=== PATIENT | male | born 1975 | race African-American/Black ===

== ENCOUNTER 2022-09-12 08:54 | Emergency (ER) | payer OTHER, SELFPAY ==
[2022-09-12 09:01] VITALS: BP 122/66; PULSE 78; RESP 16; TEMP 36.4; O2SAT 100
--- NOTE | 2022-09-12 10:26 | ED.GENADULT ---
HPI - General Adult General Chief complaint: Skin/Abscess/Foreign Body Stated complaint: cyst on buttocks Time Seen by Provider: 09/12/22 09:21 History of Present Illness HPI narrative: This is a 47-year-old male who comes in the chief complaint of lesion to the buttocks. He first noticed this a little over a week ago. He states it is not painful right now. It is occasionally painful when he sits on it the wrong way and reports a 4 out of 10 pain at most. He denies redness or warmth. He has had an abscess on his neck before and was afraid this was an abscess so he came to the emergency department. Denies fevers, chills, rectal pain, abdominal pain. Denies any problems with bowel movements. Related Data Allergies Allergy/AdvReac Type Severity Reaction Status Date / Time No Known Allergies Allergy Verified 09/12/22 09:14 Review of Systems Review of Systems: CONSTITUTIONAL: Denies fever, chills, or sweats. EYES: Denies visual changes, redness, or discharge. ENT: Denies rhinorrhea, congestion, sore throat, or otalgia. CARDIOVASCULAR: Denies chest pain, palpitations, or edema. RESPIRATORY: Denies cough or dyspnea. GASTROINTESTINAL: Denies abdominal pain, nausea, vomiting, or diarrhea. GENITOURINARY: Denies dysuria or hematuria. SKIN: Denies rash or itching. MUSCULOSKELETAL: Denies back pain, joint pain, or myalgia. NEUROLOGIC: Denies headache, numbness, dizziness, or weakness. PSYCHIATRIC: Denies anxiety or depression. Exam Narrative: GENERAL: Well-appearing, well-nourished, and in no acute distress. HEAD: Normocephalic, atraumatic. EYES: PERRLA and EOMI. ABDOMEN: Soft, nontender, nondistended, normal active bowel sounds. EXTREMITIES: Normal range of motion. No edema. SKIN: There is an area of subcutaneous tissue about 6 cm in diameter to the left buttocks. I do not appreciate any warmth, purulence or induration. Lesion is firm and somewhat mobile. The area is grossly nontender. No lesion to the right buttocks. Warm, dry, no rash. NEURO: Alert and oriented x3. No focal deficits. PSYCH: Normal mood and affect. Course Vital Signs Vital signs: Vital Signs Temperature 97.6 F 09/12/22 09:01 Pulse Rate 78 09/12/22 09:01 Respiratory Rate 16 09/12/22 09:01 Blood Pressure 122/66 09/12/22 09:01 Pulse Oximetry 100 09/12/22 09:01 Oxygen Delivery Room Air 09/12/22 09:01 Temperature 97.6 F 09/12/22 09:01 Pulse Rate 78 09/12/22 09:01 Respiratory Rate 16 09/12/22 09:01 Blood Pressure 122/66 09/12/22 09:01 Pulse Oximetry 100 09/12/22 09:01 Oxygen Delivery Room Air 09/12/22 09:01 Medical Decision Making MDM Narrative Medical decision making narrative: This is a 47-year-old male presents with chief complaint of left buttocks cyst. Department because he was afraid of an abscess. He has minimal pain with this, only hurts in certain positions. On exam appreciate a firm somewhat mobile lesion that is about 6 cm in diameter. Do not feel this is any qualities of an abscess, and seems more like a cyst of some sort. Feel this would be better seen and treated in a general surgery clinic. He has no concerning findings on history or physical. No fevers, warmth, redness, drainage or any problems with bowel movements. The area is nontender. We will give him a referral to Dr. La (general surgery). Patient is understanding and agreeable with plan for discharge Discussed with plan with Dr. Chance and he is agreeing with plan for discharge. Vital Signs Vital Signs: Vital Signs Temperature 97.6 F 09/12/22 09:01 Pulse Rate 78 09/12/22 09:01 Respiratory Rate 16 09/12/22 09:01 Blood Pressure 122/66 09/12/22 09:01 Pulse Oximetry 100 09/12/22 09:01 Oxygen Delivery Room Air 09/12/22 09:01 Temperature 97.6 F 09/12/22 09:01 Pulse Rate 78 09/12/22 09:01 Respiratory Rate 16 09/12/22 09:01 Blood Pressure 122/66 09/12/22 09:01 Pulse Oximetry 100 09/12/22 09:0
== END 2022-09-12 10:40 | disposition home or self-care (01) ==
PROVIDERS: Emergency Provider Physician Assistant
DX: L72.9 Follicular cyst of the skin and subcutaneous tissue, unspecified (principal)
CPT/HCPCS: 99281

== ENCOUNTER 2025-05-28 16:29 | Emergency (ER) | payer OTHER, SELFPAY ==
--- NOTE | ~2025-05-28 | XR_ITS ---
EXAM/PROCEDURE: XR chest 2V HISTORY: cp COMPARISON: None available. TECHNIQUE: Two view(s) of the chest. FINDINGS: LUNGS: Clear of acute processes. There is hyperinflation. The findings are consistent with COPD in the appropriate clinical setting. PLEURAL SPACES: Clear. No evidence of fluid or pneumothorax. HEART/ MEDIASTINUM: Normal in appearance. SOFT TISSUES: No significant findings. BONES: No acute osseous abnormality. IMPRESSION: No acute findings. COPD type changes in the appropriate clinical setting. Reviewed, dictated and finalized at location A. RANCE UNDERWRITING ASSISTANT
--- NOTE | 2025-05-28 16:32 | ECG_ITS ---
Test Date: 2025-05-28 16:38:02 Measurements Intervals [place] Rate: 88 P: 66 TX: 119 QRS: 64 QRSD: 94 T: 66 QT: 332 QTc: 404 Interpretive Statements SINUS RHYTHM WITH SHORT TX INTERVAL NONSPECIFIC T-WAVE ABNORMALITY VOLTAGE CRITERIA FOR LVH [MEETS CRITERIA IN ONE OF: R(aVL), S(V1), R(V5), R(V5/V6)+S(V1)] ABNORMAL ECG No previous ECG available for comparison Electronically Signed On 05-28-2025 17:24:19 BRAKER PASSENGER TRAIN by Clinton Garay M.D.
[2025-05-28 16:34] VITALS: BP 121/76; PULSE 89; RESP 18; TEMP 36.4; O2SAT 100
[2025-05-28 16:52] LABS: Hematocrit 41.4 % (42.0-52.0); Hemoglobin 13.4 g/dL (14.0-18.0); Immature Granulocyte Percent A 0.3 % (0-0.5); Lymphocytes Absolute Auto 2.01 K/mm3 (0.9-3.2); Mean Corpuscular HGB Conc 32.4 g/dl (32-36); Mean Corpuscular Hemoglobin 27.6 pg (26-34); Mean Corpuscular Volume 85.2 fl (80-100); Nucleated Red Blood Cells Absolute Auto 0.000 K/mm3 (0.0-0.012); Nucleated Red Blood Cells Perc 0.0 % (0.0-0.2); Platelet Count Result 340 k/mm3 (150-375); Red Blood Count 4.86 M/mm3 (4.6-6.20); White Blood Count 7.0 K/mm3 (4.5-10.0)
[2025-05-28 17:02] LABS: Alanine Aminotransferase 22 U/L (6-50); Albumin Level 4.4 g/dL (3.5-5.1); Alkaline Phosphatase 54 U/L (38-126); Anion Gap 6 mmol/L (4-12); Aspartate Amino Transferase 27 U/L (17-59); Bilirubin,Total 0.6 mg/dL (0.2-1.3); Blood Urea Nitrogen 11 mg/dL (9-20); Calcium 9.6 mg/dL (8.4-10.2); Carbon Dioxide 31 mmol/L (22-30); Chloride 101 mmol/L (98-107); Estimated CRCL calculation 101 ml/min; Estimated Glomerular Filt Rate > 60; Glucose 92 mg/dL (65-110); Lipase 61 U/L (23-300); Potassium 4.2 mmol/L (3.4-5.0); Sodium 138 mmol/L (137-145); Total Protein 7.6 g/dL (6.3-8.2)
[2025-05-28 17:03] LABS: INR 1.1; Prothrombin Time 14.3 Seconds (11.1-14.7)
[2025-05-28 17:04] LABS: Partial Thromboplastin Time 27.4 Seconds (22.3-36.8)
[2025-05-28 17:14] LABS: Troponin I < 0.012 ng/mL (0.000-0.034)
[2025-05-28 19:29] VITALS: BP 120/88; PULSE 69; RESP 13; O2SAT 100
--- NOTE | 2025-05-28 19:43 | ECG_ITS ---
Test Date: 2025-05-28 19:39:09 Measurements Intervals [place] Rate: 68 P: 56 [place]: 124 QRS: 61 QRSD: 85 T: 66 QT: 371 QTc: 396 Interpretive Statements SINUS RHYTHM VOLTAGE CRITERIA FOR LEFT VENTRICULAR HYPERTROPHY Electronically Signed On 05-29-2025 07:21:22 SERVICES MANAGER by Said Randhawa D.O
[2025-05-28 20:04] LABS: Troponin I < 0.012 ng/mL (0.000-0.034)
[2025-05-28] MEDS: KETOROLAC 15 MG/ML VIAL (*BKC) IV PUSH (20:28)
[2025-05-28] MEDS: ACETAMINOPHEN 500 MG TABLET 1000 MG PO (20:28)
[2025-05-28 20:33] LABS: Influenza A QL RT-PCR Negative (Negative); Influenza B QL RT-PCR Negative (Negative); RSV RNA, RT-PCR Negative (Negative); SARS-CoV-2 RNA PCR Negative (Negative)
--- NOTE | 2025-05-28 21:37 | ED_ITS ---
HPI - General Adult General Chief complaint: Chest Pain Stated complaint: ear aches, chest pain, HTN Time Seen by Provider: 05/28/25 19:29 History of Present Illness HPI narrative: This is a 49-year-old male presenting with 4 days of flu-like symptoms. Symptoms include headache, sore throat, right ear pain, fatigue. He also has a dry cough and some chest pain when he coughs. He does not have any fevers chills nausea vomiting or diarrhea. He denies sick contacts at home. Related Data Allergies Allergy/AdvReac Type Severity Reaction Status Date / Time No Known Allergies Allergy Verified 05/28/25 16:32 Exam 2 Narrative: APPEARANCE: No apparent distress. Head: mild erythema of posterior pharynx without exudates, cerumen impaction bilaterally EYES: EOMI, NOSE: Atraumatic NECK: Trachea midline RESPIRATORY: No increased rate of breathing Clear to auscultation CARDIOVASCULAR: RRR, ABDOMINAL: Non-distended MUSCULOSKELETAl: No obvious deformities NEURO: Alert. Moving 4/4 extremities SKIN:: Warm, dry. Normal color PSYCHIATRIC: Normal affect Course Vital Signs Vital signs: Vital Signs Temperature 97.5 F L 05/28/25 16:34 Pulse Rate 89 05/28/25 16:34 Respiratory Rate 18 05/28/25 16:34 Blood Pressure 121/76 05/28/25 16:34 Pulse Oximetry 100 05/28/25 16:34 Temperature 97.5 F L 05/28/25 16:34 Pulse Rate 69 05/28/25 19:29 Respiratory Rate 13 05/28/25 19:29 Blood Pressure 120/88 05/28/25 19:29 Pulse Oximetry 100 05/28/25 19:29 Oxygen Delivery Room Air 05/28/25 19:29 Medical Decision Making [facility] Narrative Medical decision making narrative: -Course: 49-year-old male presenting with flu-like symptoms. Vital signs are stable. Physical exam was benign. Labs within normal limits. Chest x-ray without infiltrates or pneumonia. Viral swabs are negative. Patient then absconded from the ED before his strep throat returned. -DDX includes but is not limited to: Flu, COVID, strep, viral syndrome Vital Signs Vital Signs: Vital Signs Temperature 97.5 F L 05/28/25 16:34 Pulse Rate 89 05/28/25 16:34 Respiratory Rate 18 05/28/25 16:34 Blood Pressure 121/76 05/28/25 16:34 Pulse Oximetry 100 05/28/25 16:34 Temperature 97.5 F L 05/28/25 16:34 Pulse Rate 69 05/28/25 19:29 Respiratory Rate 13 05/28/25 19:29 Blood Pressure 120/88 05/28/25 19:29 Pulse Oximetry 100 05/28/25 19:29 Oxygen Delivery Room Air 05/28/25 19:29 Lab Data 05/28/25 16:43 05/28/25 16:43 Labs: Lab Results 05/28/25 05/28/25 05/28/25 Range/Units 16:43 19:36 19:46 WBC 7.0 (4.5-10.0) K/mm3 RBC 4.86 (4.6-6.20) M/mm3 Hgb 13.4 L (14.0-18.0) g/dL Hct 41.4 L (42.0-52.0) % MCV 85.2 (80-100) fl MCH 27.6 (26-34) pg MCHC 32.4 (32-36) g/dl RDW 15.6 H (11.5-14.5) % Plt Count 340 (150-375) k/mm3 MPV 8.7 (7.4-10.4) fl Immature Gran % (Auto) 0.3 (0-0.5) % Neut % (Auto) 59.6 (45.5-73.1) % Lymph % (Auto) 28.6 (18.3-44.2) % [place] % (Auto) 10.4 H (2.6-8.5) % Eos % (Auto) 0.7 (0-4.4) % Baso % (Auto) 0.4 (0.2-1.2) % Lymph # (Auto) 2.01 (0.9-3.2) K/mm3 [place] # (Auto) 0.7 H (0.1-0.6) K/mm3 Eos # (Auto) 0.1 (0-0.3) K/mm3 Baso # (Auto) 0.0 (0.0-0.1) K/mm3 Abs Immat Gran (auto) 0.02 (0.00-0.031) K/mm3 Absolute Neuts (auto) 4.2 (1.3-6.7) K/mm3 Absolute Nucleated RBC 0.000 (0.0-0.012) K/mm3 Nucleated RBC % 0.0 (0.0-0.2) % PT 14.3 (11.1-14.7) Seconds INR 1.1 APTT 27.4 (22.3-36.8) Seconds Sodium 138 (137-145) mmol/L Potassium 4.2 (3.4-5.0) mmol/L Chloride 101 (98-107) mmol/L Carbon Dioxide 31 H (22-30) mmol/L Anion Gap 6 (4-12) mmol/L BUN 11 (9-20) mg/dL Creatinine 0.82 (0.7-1.3) mg/dL Estim Creat Clear Calc 101 ml/min Estimated GFR > 60 (59 - ) Glucose 92 (65-110) mg/dL Calcium 9.6 (8.4-10.2) mg/dL Total Bilirubin 0.6 (0.2-1.3) mg/dL AST 27 (17-59) U/L ALT 22 (6-50) U/L Alkaline Phosphatase 54 (38-126) U/L Troponin I < 0.012 < 0.012 (0.000-0.034) ng/mL Total Protein 7.6 (6.3-8.2) g/dL Albumin 4.4 (3.5-5.1) g/dL Lipase 61 (23-300) U/L Influenza A (RT-PCR) Negative (Negative) Influenza B (RT-PCR) Negative (Negative) RSV (RT-PCR) Negative (Negative) SARS-CoV-2 RNA (RT-PCR) Negative (Negative) Group A Strep (PCR) 05/28/25 Range/Units 20:29 WBC (4.5-10.0) K/mm3 RBC (4.6-6.20) M/mm3 Hgb (14.0-18.0) g/dL Hct (42.0-52.0) % MCV (80-100) fl MCH (26-34) pg MCHC (32-36) g/dl RDW (11.5-14.5) % Plt Count (150-375) k/mm3 MPV (7.4-10.4) fl Immature Gran % (Auto) (0-0.5) % Neut % (Auto) (45.5-73.1) % Lymph % (Auto) (18.3-44.2) % [place] % (Auto) (2.6-8.5) % Eos % (Auto) (0-4.4) % Baso % (Auto) (0.2-1.2) % Lymph # (Auto) (0.9-3.2) K/mm3 [place] # (Auto) (0.1-0.6) K/mm3 Eos # (Auto) (0-0.3) K/mm3 Baso # (Auto) (0.0-0.1) K/mm3 Abs Immat Gran (auto) (0.00-0.031) K/mm3 Absolute Neuts (auto) (1.3-6.7) K/mm3 Absolute Nucleated RBC (0.0-0.012) K/mm3 Nucleated RBC % (0.0-0.2) % PT (11.1-14.7) Seconds INR APTT (22.3-36.8) Seconds Sodium (137-145) mmol/L Potassium (3.4-5.0) mmol/L Chloride (98-107) mmol/L Carbon Dioxide (22-30) mmol/L Anion Gap (4-12) mmol/L BUN (9-20) mg/dL Creatinine (0.7-1.3) mg/dL Estim Creat Clear Calc ml/min Estimated GFR (59 - ) Glucose (65-110) mg/dL Calcium (8.4-10.2) mg/dL Total Bilirubin (0.2-1.3) mg/dL AST (17-59) U/L ALT (6-50) U/L Alkaline Phosphatase (38-126) U/L Troponin I (0.000-0.034) ng/mL Total Protein (6.3-8.2) g/dL Albumin (3.5-5.1) g/dL Lipase (23-300) U/L Influenza A (RT-PCR) (Negative) Influenza B (RT-PCR) (Negative) RSV (RT-PCR) (Negative) SARS-CoV-2 RNA (RT-PCR) (Negative) Group A Strep (PCR) Pending Discharge Plan Discharge Clinical Impression: Acute viral syndrome Patient Disposition: Elopement After Seen by Prov Patient Language: Greek Follow-up/Referrals: PHYSICIAN,VOCATIONAL COORDINATOR [Primary Care Provider, Internal Medicine]
--- NOTE | 2025-05-28 21:45 | PC.NURSE ---
Pt and visitor asked this RN how long until the strep test results. This RN went over all lab work thus far with pt and states we are still waiting on strep test to come back. This RN called lab/chemistry asking for an update on strep test results. Per lab they state they ran it and weren't paying attention and it will be another 30 minutes. This RN went to update pt and visitor and they both were seen exiting ED at this time. Pt had no IV access and exited with steady gait. MD and lithopone charger notified.
[2025-05-28 22:10] LABS: Strep Group A RT-PCR NOT DETECTED (Negative)
--- OUTSIDE RECORDS SUMMARY | 2025-05-29 15:14 | XMS_ITS | Clinical Summary ---
Author Organization [facility] [place] [facility] Address [address] [place] [address] Care Team Providers Care Aircraft Design Engineer Name Role Phone Unknown, Notinfile Primary Care Provider Unavail able Allergies No known active allergies Medications multivit-min/foli c/vit K/lycop (MEN'S MULTIVITAMIN ORAL) Take 1 tablet by mouth daily Active Active Problems No known active problems Surgical History Surgery Date Site/Laterality Comments SHOULDER SURGERY Right for fx w/pins, later surgery to remove pins; Medical History Medical History Date Comments Wears glasses Current every day smoker Marijuana use Smokes 3x/wkly Social History Tobacco Use Types Packs/Day Years Used Date Smoking Tobacco: Every Day Cigarettes 0.5 22.8 Started: 2002 Passive Smoke Exposure: Current Smokeless Tobacco: Never Tobacco Cessation:Ready to Q uit: No; Counseling Given: Yes AUDIT-C Answer Date Recorded Q1: How often do you have a drink containing alc ohol? 2-4 times a month 12/15/2022 Q2: How many drinks containi ng alcohol do you have on a typical day when you are drinking? 3 or 4 12/15/2022 Q3: How often do you have si x or more drinks on one occasion? Never 12/15/2022 Personal Safety Answer Date Recorded Have you ever been in or are you currently in a harmful physical or emotional relationship or is someone making you feel afraid or unsafe? 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 Gender Identity Not on file Sexual Orientation Not on file Last Filed Vital Signs Vital Sign Reading Time Taken Comments Blood Pressure 126/67 12/30/2022 9:20 AM CDT Pulse 61 12/30/2022 9:20 AM CDT Temperature 37 C (98.6 F) 12/30/2022 8:59 AM CDT Respiratory Rate 18 12/30/2022 9:20 AM CDT Oxygen Saturation 98% 12/30/2022 9:20 AM CDT Inhaled Oxygen Concentration - - Weight 68 kg (150 lb) 12/15/2022 10:30 AM CDT Height 185.4 cm (6' 1) 12/15/2022 10:30 AM CDT Body Mass Index 19.79 12/15/2022 10:30 AM CDT Plan of Treatment Health Maintenance Due Date Last Done Comments Colon Cancer Screening-Colonoscopy 1973 Depression Screening 1973 Prostate Cancer Screening-PSA 1973 DTaP/Tdap/Td Vaccine (1 - Tdap) 1984 Hepatitis B Screening 1991 Regular Well Visit/Exam 18-64 1991 Pneumococcal vaccine <65 (1 of 2 - PCV) 1992 Zoster Vaccine (1 of 2) 2023 Influenza Vaccine (#1) 2025 Hepatitis C Screening Completed 05/28/2017 Procedures Procedure Name Priority Date/Time Associated Diagnosis Comments HEPATITIS PANEL, ACUTE STAT 05/28/2017 5:02 PM [employer] SERVICE TECHNICIAN from Last 3 Months or Most Recently Relevant to Health Maintenance Results * Hepatitis panel, acute (05/28/2017 5:02 PM [employer] SERVICE TECHNICIAN) Hep A IgM Nonreactive Nonreactive [facility] Comment: Interpretive Data If test is reported as GRAYZONE, new sample should be drawn in two weeks for testing. Current interpretive data was last revised on 2016. Hep B core IgM Nonreactive Nonreactive [facility] Comment: Interpretive Data If test is reported as GRAYZONE, new sample should be drawn for testing. Current interpretive data was last revised on 2016. Hep C Ab Nonreactive Nonreactive [facility] Comment: Interpretive Data Positive and greyzone results should be confirmed by a molecular method. If positive or greyzone, a second separately collected sample should be submitted for Hepatitis C Virus RNA. Detection and Quantitation by Real-Time Reverse Salesperson [employer]-PCR.Current Interpretive data was last revised on 2017. HepBsAg Nonreactive Nonreactive [facility] Blood specimen (specimen) 05/28/2017 5:02 PM [employer] SERVICE TECHNICIAN 05/28/2017 5:15 PM [employer] SERVICE TECHNICIAN us Annie Castillo NP LAB MICROBIOLOGY - GENERAL ORDERABLES Edited Result - Final [facility] [address] [facility] Department [place] [address] from Last 3 Months or Most Recently Relevant to Health Maintenance Insurance [facility] Care Teams Aircraft Design Engineer Relationship Specialty Start Date End Date Unknown, Notinfile PCP - General 05/26/17
--- OUTSIDE RECORDS SUMMARY | 2025-05-29 15:14 | XMS_ITS | Clinical Summary ---
Author Organization [facility] [employer] Address [address] [place] [address] Care Team Providers Care Tax Services Manager Name Role Phone Minh Rosa MD Primary Care Provider [phone] Steve Boo MD Unavailable Source Comments [facility] [employer],non-owned Affiliates and Associated Physician Practices is amultiple site organization consisting of ambulatory clinics and hospital sitesin [place], [place], [place] and [place]. This disclosure is being madepursuant to the Care Everywhere program and may not contain all information available regarding this patient. Last updated 18.[facility] [employer] Allergies No known active allergies Medications * Be aware that medications may not be up to date on this document. Alwaysverify current medications with the patient. nicotine polacrilex (Nicorette) 4 MG gumIndications: Nicotine Dependence Take 1 (one) Each by mouth every 2 hours as needed for Smoking Cessation Reasons: Nicotine Addiction 100 Each 4 Active polyethylene glycol (Golytely) 236 g solution Drink 1/2 of prep at 5pm the night before test. Finish the prep at 6am the day of test. 4000 mL 4 Active polyethylene glycol (Golytely) solution Drink half of the prep at 5pm evening before the procedure and finish remaining half of the prep at 4AM on the day of the procedure 4000 mL 4 Active polyethylene glycol (Golytely) solution Drink 1/2 of prep at 6pm the night before test. Finish the prep at 5 am the morning of colonoscopy. 4000 mL Active multivitamin daily tablet Take 1 (one) tablet by mouth daily with food Active Active Problems Problem Noted Date Diagnosed Date Tobacco abuse disorder 09/11/2024 Mild protein-calorie malnutrition 09/11/2024 Immunizations Immunization Administration Dates Next Due DTP, HISTORIC VACCINE 05/19/1981,04/26/1974 INFLUENZA VACCINE, TRIV. (FL UZONE; FLULAVAL; FLUARIX; AFLURIA TRIVALENT; 6MO+), 0.5 ML (IIV3) 09/11/2024 POLIO OPV 05/19/1981,04/26/1974 TDAP (7yrs+) 03/06/2024 Family History Medical History Relation Name Comments Aneurysm, Brain Mother Relation Name Status Comments Brother 1 Alive Brother 2 Alive Father Alive Maternal Grandmother Mother Alive Sister 1 Alive Sister 2 Alive Social History Tobacco Use Types Packs/Day Years Used Date Smoking Tobacco: Every Day Cigarettes 0.3 16 Smokeless Tobacco: Never Tobacco Cessation:Ready to Q uit: Not Asked; Counseling Given: Not Answered Alcohol Use Standard Drinks/Week Comments Yes 0 (1 standard drink = 0.6 oz pur e alcohol) weekends PHQ-2 Answer Date Recorded Patient Health Questionnaire-2 Score 0 03/06/2024 Sex and Gender Information Value Date Recorded Sex Assigned at Not on file Legal Sex Male 5:23 PM ADMISSION NURSE Gender Identity Not on file Sexual Orientation Not on file Occupation Industry Job Start Date Job End Date unemployeed Not on file Not on file Not on file Last Filed Vital Signs Vital Sign Reading Time Taken Comments Blood Pressure 122/83 10/25/2024 1:23 PM CDT Pulse 75 10/25/2024 1:23 PM CDT Temperature 36.8 C (98.2 F) 10/25/2024 1:12 PM CDT Respiratory Rate 16 10/25/2024 1:23 PM CDT Oxygen Saturation 92% 10/25/2024 1:23 PM CDT Inhaled Oxygen Concentration - - Weight 65.3 kg (144 lb) 10/25/2024 12:13 PM CDT Height 185.4 cm (6' 1) 10/25/2024 12:13 PM CDT Body Mass Index 19 10/25/2024 12:13 PM CDT Plan of Treatment Health Maintenance Due Date Last Done Comments COLOGUARD (AGES 45-75) - COL ON CA SCREENING 1975 CT COLONOGRAPHY - COLON CA SCREENING 1975 FIT - COLON CA SCREENING 1975 FLEX SIG - COLON CA SCREENING 1975 HEPATITIS B VACCINE (1 of 3 - 19+ 3-dose series) 1992 PNEUMOCOCCAL VACCINE 50+ (1 of 2 - PCV) 1992 ZOSTER VACCINE (1 of 2) 2023 COVID-19 VACCINE (1 - 2023-2 5 season) 2025 INFLUENZA VACCINE (#1) 2025 09/11/2024 LIPID TESTING 08/30/2028 08/30/2023 DTAP/TDAP/TD VACCINES (4 - T d or Tdap) 03/06/2034 03/06/2024, 05/19/1981, 04/26/1974 COLON MONITORING 10/25/2034 10/25/2024, 10/25/2024 COLONOSCOPY - COLON CA SCREENING 10/25/2034 10/25/2024, 10/25/2024 Colorectal Cancer Screening 10/25/2034 HEPATITIS C SCREENING Completed 08/30/2023 HIV SCREENING Completed 08/30/2023 DEPRESSION SCREENING Completed 09/11/2024, 08/30/2023 HIB VACCINE Aged Out No longer eligi ble based on patient's age to complete this topic HPV VACCINE Aged Out No longer eligi ble based on patient's age to complete this topic MENINGOCOCCAL (Group B) VACCINE SHARED DECISION-MAKING Aged Out No longer eligible based on patient's age to complete this topic MENINGOCOCCAL GROUPS A/C/Y/W VACCINE Aged Out No longer eligible b ased on patient's age to complete this topic Procedures Procedure Name Priority Date/Time Associated Diagnosis Comments ENDOSCOPY, COLON, SCREENING Routine 10/25/2024 12:16 PM CDT LIPID PROFILE Routine 08/30/2023 3:50 PM ADMISSION NURSE Health care maintenance HEPATITIS C AB SCREEN RFLX NAAT QUANT Routine 08/30/2023 3:50 PM ADMISSION NURSE Health care maintenance HIV-1 HIV-2 ANTIBODY + HIV P24 AG PANEL Routine 08/30/2023 3:50 PM ADMISSION NURSE Health care maintenance from Last 3 Months or Most Recently Relevant to Health Maintenance Results * ENDOSCOPY, COLON, SCREENING (10/25/2024 12:16 PM CDT) Report Endoscopy POC Endoscopy Department Report _ Patient Name: Abelino Reis Procedure Date: 10/25/2024 12:16 PM Date of : 1975 Classification: Outpatient Gender: Male Ethnicity: Not or Race: Black or _ Providers: Joao Kulkarni MD Referring MD: Minh Rsoa MD Procedure: Colonoscopy Indications: Screening for colorectal malignant neoplasm Medications: Monitored Anesthesia Care Description of Procedure: Pre-Anesthesia Assessment: - Prior to the procedure, a History and Physical was performed, and patient medications and allergies were reviewed. The patient's tolerance of previous anesthesia was also reviewed. The risks and benefits of the procedure and the sedation options and risks were discussed with the patient. All questions were answered, and informed consent was obtained. Prior Anticoagulants: The patient has taken no anticoagulant or antiplatelet agents. ASA Grade Assessment: II - A patient with mild systemic disease. After reviewing the risks and benefits, the patient was deemed in satisfactory condition to undergo the procedure. After I obtained informed consent, the scope was passed under direct vision. Throughout the procedure, the patient's blood pressure, pulse, and oxygen saturations were monitored continuously. The Colonoscope was introduced through the anus and advanced to the cecum, identified by appendiceal orifice and ileocecal valve. The colonoscopy was performed without difficulty. The patient tolerated the procedure well. The quality of the bowel preparation was good. The ileocecal valve, appendiceal orifice, and rectum were photographed. Findings: A 10 mm polyp was found in the ascending colon. The polyp was semi-pedunculate d. The polyp was removed with a cold snare. Resection and retrieval were complete. A 5 mm polyp was found in the rectum. The polyp was sessile. The polyp was removed with a cold snare. Resection and retrieval were complete. To prevent bleeding after the polypectomy, one hemostatic clip was successfully placed (MR conditional). Clip director of religious life: [email or web address]. There was no bleeding at the end of the maneuver. Non-bleeding internal hemorrhoids were found during retroflexion. The hemorrhoids were medium-sized. The exam was otherwise without abnormality. Estimated Blood Loss: Estimated blood loss: none. Complications: No immediate complications. Impression: - One 10 mm polyp in the ascending colon, removed with a cold snare. Resected and retrieved. - One 5 mm polyp in the rectum, removed with a cold snare. Resected and retrieved. Clip (MR conditional) was placed. Clip director of religious life: [email or web address]. - Non-bleeding internal hemorrhoids. - The examination was otherwise normal. Recommendation: - Discharge patient to home. - Resume previous diet. - Continue present medications. - Await pathology results. - Repeat colonoscopy in 3 years for surveillance. - Patient has a contact number available for emergencies. The signs and symptoms of potential delayed complications were discussed with the patient. Return to normal activities tomorrow. Written discharge instructions were provided to the patient. Procedure Code(s): --- Professional --- 80818, Colonoscopy, flexible; with removal of tumor(s), polyp(s), or other lesion(s) by snare technique Diagnosis Code(s): --- Professional --- Z12.11, Encounter for screening for malignant neoplasm of colon D12.2, Benign neoplasm of ascending colon D12.8, Benign neoplasm of rectum K64.8, Other hemorrhoids CPT copyright 2021 [employer]. All rights reserved. The codes documented in this report are preliminary and upon national account manager review may be revised to meet current compliance requirements. Joao Kulkarni MD 10/25/2024 1:02:46 PM This report has been signed electronically. Note Initiated On: 10/25/2024 12:16 PM Number of Addenda: [address] [address] [facility] 10/25/2024 12:1 6 PM CDT Joao Kulkarni MD GI PROCEDURE ORDERABLES Edited Result - Final Performing Organization Address [facility] Co de Phone Number [facility] * HEPATITIS C AB SCREEN RFLX NAAT QUANT (08/30/2023 3:50 PM ADMISSION NURSE) Hepatitis C Antibody Non-react divya Non-reac tive 08/30/2023 4:52 PM ADMISSION NURSE [facility] Comment:Hepatitis C Antibody screen indicates no serologic evidence of past or current infection with Hepatitis C Virus. Patients with unexplained liver disease who are immunocompromised or suspected of having acute Hepatitis C infection may benefit from Nucleic Acid Test (JOSE RAMON) for Hepatitis C Viral RNA to confirm Hepatitis C status. Blood BLOOD SPECIMEN / Unknown Lab Venipuncture / Unknown 08/30/2023 3:50 PM ADMISSION NURSE 08/30/2023 4:05 PM ADMISSION NURSE Result [facility] Babs Munoz APRN-DENTAL EQUIPMENT INSTALLER AND SERVICER LAB - CHEMISTRY ORDE RABLES Final Result Performing Organization Address [facility] de Phone Number [address] [address], [facility] [phone] * HIV-1 HIV-2 ANTIBODY + HIV P24 AG PANEL (08/30/2023 3:50 PM ADMISSION NURSE) HIV Antigen/Antibod y 1 & 2 Non-reacti ve Non-react divya 08/30/2023 4:52 PM ADMISSION NURSE [facility] Comment:No Laboratory eviden ce of HIV infection. Blood BLOOD SPECIMEN / Unknown Lab Venipuncture / Unknown 08/30/2023 3:50 PM ADMISSION NURSE 08/30/2023 4:05 PM ADMISSION NURSE Babs Munoz APRN-[facility] LAB - CHEMISTRY ORDE LYDIA Final Result [facility] [address] [place] [address], [place] [phone] * LIPID PROFILE (08/30/2023 3:50 PM ADMISSION NURSE) [facility] Cholesterol Total 198 <200 mg/dL 08/30/2023 4:40 PM [facility] HDL 93 >40 mg/dL 08/30/2023 4:40 PM [facility] Comment: ATP III Classification of HDL Cholesterol: <40 mg/dL: Considered a major risk factor. >60 mg/dL: Considered a negative risk factor. LDL Calculated 93 <100 mg/dL 08/30/2023 4:40 PM [facility] Comment: ATP III Classification of LDL Cholesterol: <100 mg/dL: Optimal 100 - 129 mg/dL: Near Optimal/Above Optimal 130 - 159 mg/dL: Borderline High 160 - 189 mg/dL: High >190 mg/dL: Very High Triglycerides 61 <150 mg/dL 08/30/2023 4:40 PM [facility] Comment: ATP III Classification of Triglycerides: <150 mg/dL: Normal 150 - 199 mg/dL: Borderline High 200 - 400 mg/dL: High >500 mg/dL: Very High Blood BLOOD SPECIMEN / Unknown Lab Venipuncture / Unknown 08/30/2023 3:50 PM ADMISSION NURSE 08/30/2023 4:10 PM ADMISSION NURSE Babs Munoz [facility] LAB - CHEMISTRY ORDE LYDIA Final Result [facility] [address] [place] [address], [place] [phone] from Last 3 Months or Most Recently Relevant to Health Maintenance Insurance MEDICAID - [place] Care Teams Tax Services Manager Relationship Specialty Start Date End Date Minh Rosa MD [address] [facility] [place] [address] PCP - General Internal Medicine 03/06/24 Steve Boo MD [address] [place] [address] Internal Medicine 03/06/24
--- OUTSIDE RECORDS SUMMARY | 2025-05-29 15:45 | XMS_ITS | Clinical Summary ---
Author Organization [facility] [employer] Address [address] [place] [address] Care Team Providers Care Bee Raiser Name Role Phone Minh Rosa MD Primary Care Provider Steve Boo MD Unavailable Source Comments [facility] [employer],non-owned Affiliates and Associated Physician Practices is amultiple site organization consisting of ambulatory clinics and hospital sitesin [place], [place], [place] and [place]. This disclosure is being madepursuant to the Care Everywhere program and may not contain all information available regarding this patient. Last updated 18.[facility] [employer] Allergies No known active allergies Medications * [...] on file Legal Sex Male 5:23 PM PIERCER OPERATOR Gender Identity Not on file Sexual Orientation [...] CDT LIPID PROFILE Routine 08/30/2023 3:50 PM PIERCER OPERATOR Health care maintenance HEPATITIS C AB SCREEN RFLX NAAT QUANT Routine 08/30/2023 3:50 PM PIERCER OPERATOR Health care maintenance HIV-1 HIV-2 ANTIBODY + HIV P24 AG PANEL Routine 08/30/2023 3:50 PM PIERCER OPERATOR Health care maintenance from Last 3 Months or Most Recently Relevant to Health Maintenance Results * ENDOSCOPY, COLON, SCREENING (10/25/2024 12:16 PM CDT) Report Endoscopy POC Endoscopy Department Report _ Patient Name: Abelino Reis Procedure Date: 10/25/2024 12:16 PM Date of : 1975 Classification: Outpatient Gender: Male Ethnicity: Not or Race: Black or _ Providers: Joao Kulkarni MD Referring MD: Minh Rosa MD Procedure: Colonoscopy Indications: Screening for colorectal [...] clip was successfully placed (MR conditional). Clip underground conduit installer: [employer]. There was no bleeding at the end [...] retrieved. Clip (MR conditional) was placed. Clip underground conduit installer: [employer]. - Non-bleeding internal hemorrhoids. - The examination [...] the patient. Procedure Code(s): --- Professional --- 45756, Colonoscopy, flexible; with removal of tumor(s), polyp(s), or other lesion(s) by snare technique Diagnosis Code(s): --- Professional --- Z12.11, Encounter for screening for malignant neoplasm of colon D12.2, Benign neoplasm of ascending colon D12.8, Benign neoplasm of rectum K64.8, Other hemorrhoids CPT copyright 2021 [employer]. All rights reserved. The codes documented in this report are preliminary and upon him coder review may be revised to meet current compliance requirements. Joao Kulkarni MD 10/25/2024 1:02:46 PM This report has been signed electronically. Note Initiated On: 10/25/2024 12:16 PM Number of Addenda: [address] [address] [facility] 10/25/2024 12:1 6 PM CDT Joao Kulkarni MD GI PROCEDURE ORDERABLES Edited Result - Final Performing Organization Address [facility] Co de Phone Number [facility] * HEPATITIS C AB SCREEN RFLX NAAT QUANT (08/30/2023 3:50 PM PIERCER OPERATOR) Hepatitis C Antibody Non-react divya Non-reac tive 08/30/2023 4:52 PM PIERCER OPERATOR [facility] Comment:Hepatitis C Antibody screen indicates [...] Lab Venipuncture / Unknown 08/30/2023 3:50 PM PIERCER OPERATOR 08/30/2023 4:05 PM PIERCER OPERATOR Result [facility] Babs Munoz APRN-METAL TEMPLATE MAKER LAB - CHEMISTRY ORDE RABLES Final Result Performing Organization Address [facility] de Phone Number [address] [address], [facility] [phone] * HIV-1 HIV-2 ANTIBODY + HIV P24 AG PANEL (08/30/2023 3:50 PM PIERCER OPERATOR) HIV Antigen/Antibod y 1 & 2 Non-reacti ve Non-react divya 08/30/2023 4:52 PM PIERCER OPERATOR [facility] Comment:No Laboratory eviden ce of HIV infection. Blood BLOOD SPECIMEN / Unknown Lab Venipuncture / Unknown 08/30/2023 3:50 PM PIERCER OPERATOR 08/30/2023 4:05 PM PIERCER OPERATOR Babs Munoz APRN-[facility] LAB - CHEMISTRY ORDE LYDIA Final Result [facility] [address] [place] [address], [place] [phone] * LIPID PROFILE (08/30/2023 3:50 PM PIERCER OPERATOR) [facility] Cholesterol Total 198 <200 mg/dL 08/30/2023 4:40 PM [facility] HDL 93 >40 mg/dL 08/30/2023 4:40 PM [facility] Comment: ATP III Classification of HDL Cholesterol: <40 mg/dL: Considered a major risk factor. >60 mg/dL: Considered a negative risk factor. LDL Calculated 93 <100 mg/dL 08/30/2023 4:40 PM [facility] Comment: ATP III Classification of LDL Cholesterol: <100 mg/dL: Optimal 100 - 129 mg/dL: Near Optimal/Above Optimal 130 - 159 mg/dL: Borderline High 160 - 189 mg/dL: High >190 mg/dL: Very High Triglycerides 61 <150 mg/dL 08/30/2023 4:40 PM [facility] Comment: ATP III Classification of Triglycerides: <150 mg/dL: Normal 150 - 199 mg/dL: Borderline High 200 - 400 mg/dL: High >500 mg/dL: Very High Blood BLOOD SPECIMEN / Unknown Lab Venipuncture / Unknown 08/30/2023 3:50 PM PIERCER OPERATOR 08/30/2023 4:10 PM PIERCER OPERATOR Babs Munoz [facility] LAB - CHEMISTRY ORDE LYDIA Final Result [facility] [address] [place] [address], [place] [phone] from Last 3 Months or Most Recently Relevant to Health Maintenance Insurance MEDICAID - [place] Care Teams Bee Raiser Relationship Specialty Start Date End Date Minh Rosa MD [address] [facility] [place] [address] PCP - General Internal Medicine 03/06/24 Steve Boo MD [address] [place] [address] Internal Medicine 03/06/24
--- OUTSIDE RECORDS SUMMARY | 2025-05-29 15:45 | XMS_ITS | Clinical Summary ---
Author Organization [facility] Address [address] [place] [address] Care Team Providers Care Vending Route Driver Name Role Phone Unknown, Notinfile Primary Care [...] on file Legal Sex Male 10:36 AM STEAM CLOTHES PRESS OPERATOR Gender Identity Not on file Sexual [...] HEPATITIS PANEL, ACUTE STAT 05/28/2017 5:02 PM STEAM CLOTHES PRESS OPERATOR from Last 3 Months or Most Recently Relevant to Health Maintenance Results * Hepatitis panel, acute (05/28/2017 5:02 PM STEAM CLOTHES PRESS OPERATOR) Hep A IgM Nonreactive Nonreactive [facility] Comment: Interpretive Data If test is reported as GRAYZONE, new sample should be drawn in two weeks for testing. Current interpretive data was last revised on 2016. Hep B core IgM Nonreactive Nonreactive [facility] Comment: Interpretive Data If test is reported as GRAYZONE, new sample should be drawn for testing. Current interpretive data was last revised on 2016. Hep C Ab Nonreactive Nonreactive [facility] Comment: Interpretive Data Positive and greyzone results should be confirmed by a molecular method. If positive or greyzone, a second separately collected sample should be submitted for Hepatitis C Virus RNA. Detection and Quantitation by Real-Time Reverse Hinging Machine Operator-PCR.Current Interpretive data was last revised on 2017. HepBsAg Nonreactive Nonreactive [facility] Blood specimen (specimen) 05/28/2017 5:02 PM STEAM CLOTHES PRESS OPERATOR 05/28/2017 5:15 PM STEAM CLOTHES PRESS OPERATOR us Annie Castillo NP LAB MICROBIOLOGY - GENERAL ORDERABLES Edited Result - Final [facility] Department [place] [address] from Last 3 Months or Most Recently Relevant to Health Maintenance [facility] Care Teams Vending Route Driver Relationship Specialty Start Date End Date Unknown, Notinfile PCP - General 05/26/17
== END 2025-05-28 21:49 | disposition left against medical advice (07) ==
PROVIDERS: Student in an Organized Health Care Education/Training Program; Emergency Provider Emergency Medicine
DX: B34.9 Viral infection, unspecified (principal); Z20.822 Contact with and (suspected) exposure to COVID-19; R94.31 Abnormal electrocardiogram [ECG] [EKG]
CPT/HCPCS: 36415; 71046; 80053; 83690; 84484; 85025; 85610; 85730; 87637; 87651; 93005; 96374; 99284; A9270; J1885